=== PATIENT | female | born 1995 | race African-American/Black ===

== ENCOUNTER 2017-01-30 14:09 | Emergency (ER) | payer OTHER ==
[~2017-01-30 14:09] MED LIST: DICL75 PO; NAPR-576 PO
[2017-01-30 14:14] VITALS: BP 132/73; PULSE 91; RESP 16; TEMP 97.3; O2SAT 100
--- NOTE | 2017-01-30 14:52 | PD ---
Physical Exam Date Seen by Provider: Jan 30, 2017 Time Seen by Provider: 14:51 Data Data Last Documented VS Vital Signs Date Time Temp Pulse Resp B/P Pulse Ox O2 Delivery O2 Flow Rate FiO2 01/30/17 14:14 97.3 91 16 132/73 100 MDM Supervised Visit with GERALD: No Narrative Course 21 YO F with complaint of lower abdominal pain since last night. + nausea. LMP 6/10. Vitals reviewed. Seen in triage, awaiting bed placement. Colette Bhatti Jan 30, 2017 14:52
== END 2017-01-30 17:20 | disposition left against medical advice (07) ==
LOC: NETRI 14:09
DX: R10.30 Lower abdominal pain, unspecified (principal); R11.0 Nausea; Z53.21 Procedure and treatment not carried out due to patient leaving prior to being seen by health care provider
CPT/HCPCS: 99281